=== PATIENT | female | born 1995 | race Two or more races ===

== ENCOUNTER 2024-02-19 11:00 | Outpatient (RCR) | payer MEDICAID, SELFPAY ==
--- NOTE | 2024-02-03 12:47 | PT.ODAYNRPT ---
PT Outpatient Daily Note OP Daily Note Outpatient Physical Therapy Treatment Date: 02/03/24 Visit Reasons: Fracture of shaft of Right Femur Subjective: Pt is now walking without any AD. Pt wants to walk on her gait where she's limping less. Objective: Please see flow chart for list of ther ex performed Assessment: advanced patient to more balance and single limb exercises. Difficulty with rocker board due to hip weakness and decrease control while on the board. Plan: Continue with PT Length of Time (minutes) of Treatment: 30 Minutes Procedure Charges Therapeutic Exercise 30 minutes: Yes
--- NOTE | 2024-02-12 12:04 | PT.ODAYNRPT ---
PT Outpatient Daily Note OP Daily Note Outpatient Physical Therapy Treatment Date: 02/12/24 Visit Reasons: Fracture of shaft of Right Femur Subjective: Pt still limp, however, with a device limp is less. 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 Objective: Please see flow chart for list of ther ex performed Assessment: instructed to continue to put as much weight as able in stance to decrease antalgic gait. Pt also cues to control step down exercises to work on improving quad stability Plan: Continue with PT Length of Time (minutes) of Treatment: 30 Minutes Procedure Charges Therapeutic Exercise 30 minutes: Yes
--- NOTE | 2024-02-14 13:12 | PT.ODAYNRPT ---
PT Outpatient Daily Note OP Daily Note Outpatient Physical Therapy Treatment Date: 02/14/24 Visit Reasons: Fracture of shaft of Right Femur Subjective: Pt reports R leg is doing better, progressing. Objective: Please see flow sheet for ther ex list. Assessment: Pt ambulates with increase load on R LE during stance phase and improved heel strike indicating progress. Plan: Continue with POC. Length of Time (minutes) of Treatment: 30 Minutes Procedure Charges Therapeutic Exercise 30 minutes: Yes
--- NOTE | 2024-02-19 11:40 | PTNOTE_ITS ---
PT Outpatient Daily Note OP Daily Note Outpatient Physical Therapy Treatment Date: 02/19/24 Visit Reasons: Fracture of shaft of Right Femur Subjective: Pt reports her thigh is sore today, mentioned she has been trying to be more active. Objective: Please see flow sheet for ther ex list. Assessment: Pt instructed on forward lunges pt relies heavy on [place] during exercise, decreased lunge height to reduce [place]. Plan: Continue with POC. Length of Time (minutes) of Treatment: 30 Minutes Procedure Charges Therapeutic Exercise 30 minutes: Yes
--- NOTE | 2024-03-18 08:55 | PTNOTE_ITS ---
PT OP Progress/Discharge Note Date of Service: 03/18/24 Patient Information Visit Reasons: Fracture of shaft of Right Femur Status Assessment: Pt has been seen for 27 visits (eval + 26 visits). Pt last treated on 02/19/24. Pt no showed 02/21/24 appt and will be d/c from care at this time due to non- compliance per attendance policy. Pt did not meet set goals in therapy; thank you for your referrals.
== END 2024-02-29 23:59 | disposition home or self-care (01) ==
LOC: CPTX 11:00
PROVIDERS: PCP Physician Assistant Medical; Referring Provider Physician Assistant Medical; Visit Provider Physician Assistant Medical
DX: M79.604 Pain in right leg (principal); R26.2 Difficulty in walking, not elsewhere classified; R26.89 Other abnormalities of gait and mobility; S72.3 Fracture of shaft of femur; V89.2XXD Person injured in unspecified motor-vehicle accident, traffic, subsequent encounter
CPT/HCPCS: 97110

== ENCOUNTER 2024-08-03 14:19 | Emergency (ER) | payer MEDICAID, SELFPAY ==
[2024-08-03 14:28] VITALS: BP 131/85; PULSE 74; RESP 20; TEMP 36.8; O2SAT 97
--- NOTE | 2024-08-03 14:32 | XR_ITS ---
Examination: Foot, right, 3 views Technique: AP, oblique, lateral views foot, 3 views Date and time of exam: August 03, 2024 1437 hours INDICATIONS: Patient fell one hour ago with injury to foot, foot pain FINDINGS: Significant osteopenia No acute fracture Small plantar bony calcaneal spur IMPRESSION: No acute fracture
--- NOTE | 2024-08-03 14:32 | XR_ITS ---
Examination: Knee, right , 3 views Technique: Knee AP, lateral, oblique 3 views Date and time of exam: August 03, 2024 1437 hours INDICATIONS: Patient fell today with injury to the knee, knee pain. FINDINGS: Moderate osteopenia. Partial visualization femoral and tibial intramedullary rods No acute fracture IMPRESSION: No acute fracture
--- NOTE | 2024-08-03 14:32 | XR_ITS ---
Examination: Tibia-Fibula, right , 2 views Technique: Tibia-fibula AP lateral 2 views Date and time of exam: August 03, 2024 1437 hours INDICATIONS: Patient fell today with injury to the lower leg, lower leg pain. FINDINGS: Old fractures distal tibial and fibular shafts No acute fracture Prominent osteopenia IMPRESSION: No acute fracture
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
== END 2024-08-03 16:37 | disposition home or self-care (01) ==
PROVIDERS: Emergency Provider Emergency Medicine; PCP Physician Assistant Medical
DX: S99.921A Unspecified injury of right foot, initial encounter (principal); S89.91XA Unspecified injury of right lower leg, initial encounter; W18.30XA Fall on same level, unspecified, initial encounter
CPT/HCPCS: 73562; 73590; 73630; 99283

== ENCOUNTER → 2025-03-03 | Outpatient (CLI) | payer MEDICAID, SELFPAY ==
--- NOTE | 2025-03-03 | XR_ITS ---
EXAMINATION: Right femur 2 views TECHNIQUE: AP lateral right femur 2 views Date and time: March 03, 2025, 0832 hours INDICATIONS: Injury to the right leg with surgery 1 year ago. FINDINGS: Healed fracture proximal femoral shaft Intramedullary gume satisfactory position Hip joint space well-maintained IMPRESSION: Healed fracture proximal femoral shaft with satisfactory alignment
--- NOTE | 2025-03-03 | XR_ITS ---
Examination: Knee, right, 3 views Technique: Knee AP, lateral, oblique 3 views Date and time of exam: March 03, 2025, 0832 hours INDICATIONS: Injury to the right leg 1 year ago with persistent pain FINDINGS: Partial visualization femoral and tibial shaft intramedullary rods Prominent osteopenia Mild tricompartment osteoarthritis No acute fracture IMPRESSION: Mild tricompartment osteoarthritis
--- NOTE | 2025-03-03 | XR_ITS ---
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
== END | disposition home or self-care (01) ==
PROVIDERS: PCP Physician Assistant Medical; Referring Provider Orthopaedic Surgery; Visit Provider Orthopaedic Surgery
DX: M25.561 Pain in right knee (principal); M79.604 Pain in right leg; M79.651 Pain in right thigh; M17.11 Unilateral primary osteoarthritis, right knee; S89.91XS Unspecified injury of right lower leg, sequela; X58.XXXS Exposure to other specified factors, sequela
CPT/HCPCS: 73552; 73562; 73590